=== PATIENT | female | born 1970 | race Caucasian/White ===

== ENCOUNTER 2024-06-21 10:34 | Emergency (ER) | payer MEDICARE, OTHER, SELFPAY ==
[2024-06-21 10:37] VITALS: BP 118/82
--- NOTE | 2024-06-21 10:53 | ED.GENMED ---
History of Present Illness
General
Chief Complaint: Crisis Evaluation
Source: patient
Exam Limitations: none
Time Seen by Provider: 06/21/24 10:51
Nursing documentation reviewed up to this point in time: agreed with
History of Present Illness
History of Present Illness:
53 yo female presents emergency department due to being less responsive and cooperative. She is not responding to questions, and only want to walk around. Staff is concerned she is catatonic. She lives at home with her mother, and her mother
cannot take care of her in this state. This has happened in the past. She is schizophrenic.
Past History
Past History
ED Past Medical History: Psychiatric (schizophrenia)
ED Past Surgical History: Cholecystectomy
Social History
Tobacco: Smoker
Alcohol: None
Personal: Single
Living: with family
Review of Systems
Review of Systems
Allergies reviewed?: Yes
All Other Systems: Not applicable
Constitutional: Reports no symptoms
EENT: Reports no symptoms
Respiratory: Reports no symptoms
Cardiac: Reports no symptoms
ABD/GI: Reports no symptoms
: Reports no symptoms
Musculoskeletal: Reports no symptoms
Skin: Reports no symptoms
Neurological: Reports other (Altered mental status)
Endocrine: Reports no symptoms
Hematologic/Lymphatic: Reports no symptoms
Psychiatric: Reports other (Altered mental status)
Phy Exam
Physical Exam
Physical Exam:
Right
Physical Exam
General: no apparent distress, not acutely ill
Neck: supple. no meningeal signs. normal posterior pharynx
Heart: s1/s2 regular rate and rhythm, no murmur. equal radial
pulses.
HEENT: Pupils equal round reactive to light, EOMI
Lungs: no acute respiratory distress. clear bilaterally
Abdomen: normal bowel sounds. not tender. no CVAT
Neuro: alert and oriented. no focal neurological deficits cranial nerves II through XII intact
Skin: no rash
Psychiatric: Flat affect, not cooperative or interactive
Extremities: no edema. no calf tenderness. negative homans. good distal pulses
Course
Orders/Labs/Results
Orders:
Orders
06/21/24 10:58
PSYCHIATRY CONSULT Urgent
Consulting Provider: Qamar Siddiqui
Was physician already notified: Yes
Reason for consult: behavioral change
Vital Signs
Initial and Last Documented VS:
Initial Vital Signs
Temp Pulse Resp BP Pulse Ox
98.2 F 74 16 118/82 98
06/21/24 10:37 06/21/24 10:37 06/21/24 10:37 06/21/24 10:37 06/21/24 10:37
Last Documented Vital Signs
Temp Pulse Resp BP Pulse Ox
98.2 F 74 16 118/82 98
06/21/24 10:37 06/21/24 10:37 06/21/24 10:37 06/21/24 10:37 06/21/24 10:37
MDM/Problems Addressed
Differential Diagnosis Includes:
Catatonia, schizophrenia
MDM/Problems Addressed:
53-year-old female with schizophrenia, concern for catatonia. Patient under 302. Will be evaluated by psychiatry
Chronic conditions affecting care: Psychiatric illness
Acute Exacerbation and/or Progression of Chronic Illness: Psychiatric illness
*Pulse Oximetry
Patient hypoxic: no
*Critical Care Note
Total Time (30-74mins, 75-104mins- exclusive of procedures): Not Applicable
Patient Management
Social determinants of health affecting care: Living situation
Discussion with other providers: Worm Raiser (Psychiatry to see patient) and Other
Escalation/DeEscalation of care consider admission/obs:
Patient likely requires admission to inpatient psychiatric facility
ED Attending Note
-
Portions of this chart may have been created with voice recognition software.� Occasional wrong word or��sound alike� substitutions may have occurred due to the inherent limitations of voice recognition software.
Discharge Plan
Departure
Patient Disposition: Psych Facility
Date of Disposition: 06/21/24
Time of Disposition: 13:10
Patient Status:: 302
Patient with high blood pressure during this ER visit?: No
Condition: Fair
Discharge Problem:
Schizophrenia
Prescriptions:
No Action
Latuda
1 tab PO DAILY
ondansetron 4 MG tablet,disintegrating
4 mg PO TIDPRN PRN (Reason: nausea) Qty: 6 0RF
Referrals:
UNKNOWN - PT NOT,INTERVIEWE [Family Provider] -
Interventions
Interventions:
*Risk Screen - Suicide Last Done: 06/21/24 10:45
*General Assessment Last Done: 06/21/24 11:01
*Neglect/Abuse Screening Last Done: 06/21/24 10:45
*ED COVID-19 Vaccine History Last Done: 06/21/24 11:01
ED-Psychological Assessment Last Done: 06/21/24 11:01
Discharge Date and Time
Print Language: MACANESE
--- NOTE | 2024-06-21 15:11 | W.PN.UPDATE ---
Update Note
Progress Note Update
Pt is a 53 yo female brought over from [facility] program, on a 302 due to worsening psychosis and inability to care for self. Pt has been followed by [facility] for years, with med mgt, attending the [facility] for months. Pt noted by [facility]
staff and family not communicating, not receptive to input, going outside in the cold without a coat, not attending to her hygiene, having AH/hearing voices, paranoid ideation, disorganized thoughts.
On interview, pt lying on her side, unkempt, with hair in her face, not making eye contact, internally preoccupied, disorganized. Pt states only 'can I walk back...', does not answer questions.
Per [facility] record, current medications: Latuda 120 mg QD, Benadryl 25 mg HS prn, Rexulti 1 mg QD added on 05/30/24
Hx of multiple psychiatric hospitalizations, Dx Schizoaffective d/o
Pt noted to have previous med trials of Risperidone, Clozaril, Depakote, [place], Invega, Vraylar, Abilify, Thorazine
Imp: Schizoaffective d/o, with exacerbation of psychosis, inability to care for self. 302 is upheld
Rec: Inpatient psych placement on 302. Reviewed with Crisis staff. Will follow
[2024-06-21 21:37] VITALS: BP 119/64
== END 2024-06-21 22:10 ==
LOC: EMR 10:34
PROVIDERS: CONSULT PHYSICIAN Psychiatry & Neurology Psychiatry; EMERGENCY PHYSICIAN Emergency Medicine
DX: F25.9 Schizoaffective disorder, unspecified (principal); F29 Unspecified psychosis not due to a substance or known physiological condition; F17.200 Nicotine dependence, unspecified, uncomplicated; Z90.49 Acquired absence of other specified parts of digestive tract
CPT/HCPCS: 99285

== ENCOUNTER 2025-01-23 11:12 | Emergency (ER) | payer MEDICARE, OTHER, SELFPAY ==
[2025-01-23] VITALS (7 sets, daily range): BP systolic 121–147; BP diastolic 80–103
--- NOTE | 2025-01-23 11:33 | ED.GENMED ---
History of Present Illness
<Shalom Lee, DO - Last Filed: 01/23/25 13:16>
General
Chief Complaint: Musculo-Skeletal Complaint
Source: patient
Exam Limitations: none
Time Seen by Provider: 01/23/25 11:27
History of Present Illness
History of Present Illness:
See MDM
Past History
<Shalom Lee, DO - Last Filed: 01/23/25 13:16>
Past History
ED Past Medical History: Psychiatric (schizophrenia)
ED Past Surgical History: Cholecystectomy
Social History
Tobacco: Smoker
Alcohol: None
Personal: Single
Living: with family
Phy Exam
<Shalom Lee, DO - Last Filed: 01/23/25 13:16>
Physical Exam
Physical Exam:
See MDM
Course
<Shalom Lee, DO - Last Filed: 01/23/25 13:16>
Orders/Labs/Results
Orders:
Orders
01/23/25 14:28
Case Management Consult ONCE
Case Management Consult: Discharge Planning
01/23/25 16:21
Crisis Consult Urgent
Reason for Consult: change in pt, sent from [facility] outpt for psych consult
01/23/25 17:27
Basic Metabolic Panel Urgent
Complete Blood Count/With Diff Urgent
HCG, Serum Qualitative Screen Urgent
Diazepam [Valium] 2 mg PO NOW STA
Test Result ONCE
01/23/25 17:28
Electrocardiogram (*1) Stat
Reason for Study: Abdominal Pain
PSYCHIATRY CONSULT Urgent
Consulting Provider: Paresh Pinto
Was physician already notified: Yes
EKG- Treatment ONCE
Vital Signs
Initial and Last Documented VS:
Initial Vital Signs
Temp Pulse BP Pulse Ox
98.4 F 114 135/103 96
01/23/25 11:15 01/23/25 11:15 01/23/25 11:15 01/23/25 11:15
Last Documented Vital Signs
Temp Pulse Resp BP Pulse Ox
98.3 F 109 18 136/80 98
01/23/25 11:26 01/23/25 16:00 01/23/25 16:00 01/23/25 16:00 01/23/25 16:00
<Tom Das, - Last Filed: 01/23/25 17:30>
Orders/Labs/Results
Orders:
Orders
01/23/25 14:28
Case Management Consult ONCE
Case Management Consult: Discharge Planning
01/23/25 16:21
Crisis Consult Urgent
Reason for Consult: change in pt, sent from [facility] outpt for psych consult
01/23/25 17:27
Basic Metabolic Panel Urgent
Complete Blood Count/With Diff Urgent
HCG, Serum Qualitative Screen Urgent
Diazepam [Valium] 2 mg PO NOW STA
Test Result ONCE
01/23/25 17:28
Electrocardiogram (*1) Stat
Reason for Study: Abdominal Pain
PSYCHIATRY CONSULT Urgent
Consulting Provider: Paresh Pinto
Was physician already notified: Yes
EKG- Treatment ONCE
Vital Signs
Initial and Last Documented VS:
Initial Vital Signs
Temp Pulse BP Pulse Ox
98.4 F 114 135/103 96
01/23/25 11:15 01/23/25 11:15 01/23/25 11:15 01/23/25 11:15
Last Documented Vital Signs
Temp Pulse Resp BP Pulse Ox
98.3 F 109 18 136/80 98
01/23/25 11:26 01/23/25 16:00 01/23/25 16:00 01/23/25 16:00 01/23/25 16:00
<Shalom BritoDariel Lee, DO - Last Filed: 01/23/25 13:16>
MDM/Problems Addressed
Differential Diagnosis Includes:
Note:
CHIEF COMPLAINT(S)
Right knee pain due to a fall.
HISTORY OF PRESENT ILLNESS
The patient is a 54-year-old female who experienced a fall, specifically affecting her right knee. Upon examination, the patient reports no numbness or tingling sensations. She denies any head injury from the fall. The right knee, which has
previously bothered her, looks non-problematic upon visual inspection, but an x-ray will be performed to rule out any underlying issues. She declined the offer of pain medication, such as acetaminophen, at the moment but was informed to reconsider
if needed.
PHYSICAL EXAM
General: Alert, no acute distress.
Skin: Warm, dry.
Head: Normocephalic, atraumatic
Neck: Appears supple, trachea midline.
Eyes, Ears, Nose, Mouth, and Throat: Oral mucosa moist.
Cardiovascular: No signs of cyanosis
Respiratory: Respirations are non-labored.
Abdomen: Non-distended
Musculoskeletal: No deformities. No edema or erythema noted to bilateral knees. Distal pulses intact
Neurological: No focal neurological deficit observed.
Psychiatric: Cooperative, appropriate mood and affect.
PLAN
1. Order an x-ray of the right knee to evaluate for any fractures or abnormalities.
2. Offer acetaminophen for pain relief, if the patient decides later that it is needed.
DIFFERENTIAL DIAGNOSIS
The Differential Diagnosis includes, in no particular order and is not limited to:
1. Soft tissue injury
2. Knee contusion
3. Ligament sprain
4. Meniscal tear
5. Patellar fracture
6. Osteoarthritis exacerbation
7. Joint effusion
8. Bursitis
9. Tendonitis
10. Subchondral fracture
01/23/25 - 13:14
Patient continues to refuse the x-ray. On repeat examination, there is an absence of tenderness. No new symptoms or changes in condition noted.
SUMMARY OF ENCOUNTER
The patient, a 54-year-old female, initially presented with right knee pain following a fall. An x-ray was ordered to rule out fractures or abnormalities, but the patient refused the imaging. Upon reassessment, there was no identified pain or
deformation to suggest a fracture. She declined pain medications.
PLAN
Discharge the patient back to her facility with a diagnosis of knee sprain. Monitor for any changes or worsening of symptoms.
PATIENT EDUCATION AND COUNSELING
Informed the patient about the absence of symptoms indicative of a fracture and advised her to monitor for any new symptoms or pain.
MEDICAL DECISION MAKING
-Complexity of Data Reviewed: The differential diagnosis includes soft tissue injury, knee contusion, ligament sprain, meniscal tear, patellar fracture, osteoarthritis exacerbation, joint effusion, bursitis, tendonitis, and subchondral fracture.
Category 1
The diagnostic test considered and initially planned was an x-ray of the right knee to assess for any fractures or abnormalities, though it was ultimately not performed due to patient refusal.
-Risk: Prescription medication offered but not accepted by the patient at this time. Consideration of Admission/Observation: Escalation of care including admission was considered given the complexity and risk of the patients presenting complaint,
exam findings, and/or her underlying comorbidities. However, ultimately I feel the patient is safe for outpatient management with close follow-up. Reasoning: Work-up is reassuring and does not reveal any acute life/organ-threatening processes;
patients symptoms are well-controlled upon reevaluation; reexamination is reassuring; vitals are stable; patient is agreeable with discharge and reliable for follow-up.
DIAGNOSIS
Knee sprain (ICD-10: S83.91XA).
<Shalom Lee, DO - Last Filed: 01/23/25 13:16>
*Pulse Oximetry
SaO2: 95
Oxygen Mode of Delivery: Room air
Patient hypoxic: no
*Critical Care Note
Total Time (30-74mins, 75-104mins- exclusive of procedures): Not Applicable
<Tom Das, DO - Last Filed: 01/23/25 17:30>
Update Note
Update Note:
1730 patient remains catatonic and unable to be discharged. She lives with an 80-year-old mother who is unable to care for her when she is catatonic. Old record reviewed. This has happened to her in the past. Patient was seen by psychiatry
medicine patient care. He also recommends diazepam by mouth. Await psychiatric placement
ED Attending Note
<Shalom Lee, DO - Last Filed: 01/23/25 13:16>
-
Portions of this chart may have been created with voice recognition software.� Occasional wrong word or��sound alike� substitutions may have occurred due to the inherent limitations of voice recognition software.
Discharge Plan
Departure
Patient Disposition: Psych Facility
Date of Disposition: 01/23/25
Time of Disposition: 13:16
Patient with high blood pressure during this ER visit?: No
Discharge Problem:
Right knee sprain, Catatonia
Prescriptions:
No Action
Latuda
1 tab PO DAILY
ondansetron 4 MG tablet,disintegrating
4 mg PO TIDPRN PRN (Reason: nausea) Qty: 6 0RF
Activity Restrictions/Additional Instructions:
Please return for any worsening symptoms.
You may return at any time if you have further concerns.
Please follow up with your doctor at the first available appointment, preferably this week.
Thank you for choosing [facility].
Interventions
Interventions:
*Risk Screen - Suicide Last Done: 01/23/25 11:25
*General Assessment Last Done: 01/23/25 11:25
*Neglect/Abuse Screening Last Done: 01/23/25 11:25
*ED- Fall Risk Assessment Last Done: 01/23/25 11:25
*ED COVID-19 Vaccine History Last Done: 01/23/25 11:25
ED-Musculoskeletal Assessment Last Done: 01/23/25 11:21
ED-Psychological Assessment Last Done: 01/23/25 16:00
Discharge Date and Time
Print Language: MACEDONIAN
--- NOTE | 2025-01-23 13:22 | EDRN ---
Pt was taken to xray and held her arms up to prevent her going into xray.
--- NOTE | 2025-01-23 14:15 | EDRN ---
Pt remains non verbal, not making eye contact w/ staff. This RN conversed situation w/ discharge planner and was advised to call case management and possible ambulance to take pt home. I asked pt how she is going to get home. Pt states she will call someone
to take her home though does not have phone and mostly nonverbal. I requested a phone number to call for her and she did not give me one.
--- NOTE | 2025-01-23 14:20 | EDRN ---
This RN spoke w/ toll settlement clerk and she called case management for a consult and I requested from Dr. Das a consult to be placed in as pt was discharged prior to Dr. Lee left so not passed on to anyone. Dr. Das informed the story and placed order
for this RN.
--- NOTE | 2025-01-23 14:35 | EDRN ---
Case management in to see pt and again pt did not say much at all and not enough to get info to get pt a ride home. Case management is attempting to get information at this time on pt.
--- NOTE | 2025-01-23 15:09 | EDRN ---
Pt was sent to ER for crisis consult as well as post fall knee pain. Pt's nonverbal in ER is not pt's normal and [facility] said they sent pt for crisis workup and post fall evaluation. This RN informed Dr. Das that pt needs a psychiatric evaluation
as well per [facility] which was not communicated. Mother whom piano case maker just spoke to says pt is not at her baseline and not her normal and needs crisis consult. Report from EMS said pt only here for evaluation of R knee post fall.
--- NOTE | 2025-01-23 15:17 | CM ---
ED CM consulted
Pt cleared for dc and will not make eye contact/speak to staff to determine dc disposition and transport home
Pt brought in from [facility] outpt appt today secondary to fall
Call with [facility]
She provided mother's contact info
She requested MH/crisis eval due to behaviors
Call with mother/[facility] [phone]
She also requested crisis eval due to behaviors
Consult placed and pending
--- NOTE | 2025-01-23 16:32 | EDRN ---
bakery worker in room w/ pt at this time.
--- NOTE | 2025-01-23 16:35 | EDRN ---
home support worker attempted interview and pt was mostly not answering and giving blank stare and eyes wandering.
--- NOTE | 2025-01-23 17:02 | EDRN ---
bushel worker is speaking w/ mother. Unable to get permission from pt for placement as pt is non verbal. Mother or physician would have to give a involuntary placement for pt. Mother looking back in records has sent pt here 3 other times in the past
for exact same symptoms r/t in those notes inability to care for pt.
--- NOTE | 2025-01-23 17:23 | EDRN ---
Paychiatrist in room w/pt at this time. Pt not eating/drinking. Pt has been lying on stretcher not moving except the time I discovered pt mcc down stretcher.
--- NOTE | 2025-01-23 17:26 | EDRN ---
Pt did speak to psychiatrist when he was in room. According to psychiatrist pt is agreeable to inpt care. Pt had AM medications he said but needs her ativan which he will order.
--- NOTE | 2025-01-23 18:01 | EDRN ---
Pt taken to Crisis #1 via w/c. Pt was at the end of stretcher. Asked if pt could walk. Pt stood up and went down on floor slowly onto all fours. Pt had to be assisted up into w/c and wheeled to crisis #1. Pt signed paperwork and is a 201.
[2025-01-23] MEDS: VALIUM 2 MG PO (18:12)
[2025-01-23 18:32] LABS: Hematocrit 36.8 % (37.0-47.0); Hemoglobin 12.4 g/dL (12.0-16.0); Mean Corp Hgb Conc. 33.7 g/dL (33.0-37.0); Mean Corpuscular Volume 80.9 fL (81.0-99.0); Nucleated Red Blood Cells % 0 %; Platelet Count 395 10^3/uL (130-400); Red Cell Dist. Width 13.9 % (11.5-14.5)
[2025-01-23 18:40] LABS: HCG, Serum Qualitative Screen Negative
[2025-01-23 18:45] LABS: Blood Urea Nitrogen 18 mg/dl (7-17); Calcium 10.0 mg/dl (8.4-10.2); Carbon Dioxide 25 mmol/L (22-30); Chloride 106 mmol/L (98-107); Glucose 112 mg/dl (70-99); Potassium 3.8 mmol/L (3.5-5.1); Sodium 142 mmol/L (135-145); eGFR > 60.00
--- NOTE | 2025-01-23 20:56 | CS.PSYCHR ---
Consult Summary - Psychiatry
-
pt seen by me in consultation due to complaint of catatonia
54 yo woman referred from outpatient program after a fall there. Has been noted to be more withdrawn, mother has noted catatonia symptoms.
Long history (since age 21) of schizoaffective disorder. Currently on clozapine. Many inpatient stays for catonic symptoms. Current stressors are CVA in mother November 2024 (in her 80s)
Pt has history of nicotine addiction, cholesystectomy. No allergies
Has been on a variety of antipsychotics, unclear which ones patient it taking at present.
On exam pt responds with one word answers and gestures. At my suggestion, pt agrees to inpatient care.
Per mother, pt had run out of house yesterday screaming that she had a bomb in her body.
Will give valium po in ED to improve degree of interactivity
lab studies ok
== END 2025-01-24 01:26 ==
LOC: EMR 11:12
PROVIDERS: CONSULT PHYSICIAN Psychiatry & Neurology Psychiatry; EMERGENCY PHYSICIAN Emergency Medicine
DX: S83.91XA Sprain of unspecified site of right knee, initial encounter (principal); R40.1 Stupor; F20.9 Schizophrenia, unspecified; F17.200 Nicotine dependence, unspecified, uncomplicated; W19.XXXA Unspecified fall, initial encounter; Y92.89 Other specified places as the place of occurrence of the external cause
CPT/HCPCS: 99284; 80048; 84703; 85025; 93005